=== PATIENT | male | born 1950 | race Two or more races ===

== ENCOUNTER 2024-01-05 00:47 | Inpatient (IN) | payer MEDICARE, OTHER ==
[~2024-01-05] VITALS: Ht 167.6 cm; Wt 62.6 kg
[2024-01-05] MEDS ORDERED: MAG HYDROX/AL HYDROX/SIMETH 30 ML UDC PO PRN (01:30)
[2024-01-05] MEDS ORDERED: MAGNESIUM HYDROXIDE 30 ML UDC PO PRN (01:30)
[2024-01-05 02:23] VITALS: BP 126/76; TEMP 98.2
[2024-01-05] MEDS: BLOOD SUGAR DIAGNOSTIC 1 EACH STRIP IN ONE (04:56)
[2024-01-05] MEDS ORDERED: RISP2TAB85 PO (06:23)
[2024-01-05] MEDS ORDERED: NICO-627 TP (06:23)
[2024-01-05 07:30] LABS: CALCIUM, SERUM 9.8 mg/dL (8.5-10.1); CREATININE 1.3 mg/dL (0.6-1.3); POTASSIUM 3.6 mmol/L (3.5-5.1)
[2024-01-05 07:35] LABS: ALBUMIN 3.2 g/dL (3.4-5.0); BILIRUBIN,TOTAL 0.5 mg/dL (0.2-1.0); TOTAL PROTEIN, SERUM 6.8 g/dL (6.4-8.2)
[2024-01-05 08:00] VITALS: BP 141/79; TEMP 98; O2SAT 96
[2024-01-05] MEDS: MECLIZINE HCL 12.5 MG TABLET PO PRN (12:57)
[2024-01-05 16:00] VITALS: BP 139/71; TEMP 98.7; O2SAT 98
[2024-01-05] MEDS: risperiDONE 1 MG TABLET PO SCH (16:04)
[2024-01-05 20:02] VITALS: BP 132/98; TEMP 98; O2SAT 100
[2024-01-06 06:44] LABS: BASOPHILS % (AUTO) 0.6 % (0.0-2.0); EOSINOPHILS # (AUTO) 0.2 K/uL (0.0-0.7); EOSINOPHILS % (AUTO) 3.2 % (0.0-6.0); HEMATOCRIT 38 % (39-51); HEMOGLOBIN 12.8 g/dL (13.5-17.5); LYMPHOCYTES # (AUTO) 1.9 K/uL (0.8-4.8); LYMPHOCYTES % (AUTO) 25.9 % (20.0-44.0); MEAN CORPUSCULAR HEMOGLOBIN 30 PG (26.0-33.0); MEAN CORPUSCULAR HGB CONC 34 g/dl (31.0-36.0); MEAN CORPUSCULAR VOLUME 87 fL (80-96); MONOCYTES # (AUTO) 0.9 K/uL (0.1-1.30); MONOCYTES % (AUTO) 11.7 % (2.0-12.0); NEUTROPHILS # (AUTO) 4.3 K/uL (1.8-8.9); NEUTROPHILS % (AUTO) 58.6 % (43.0-81.0); PLATELET COUNT (AUTO) 234 K/uL (150-450); RED BLOOD CELL COUNT(AUTO) 4.34 MIL/uL (4.5-6.0); RED CELL DISTRIBUTION WIDTH 15.3 % (11.5-15.0); WHITE BLOOD COUNT (AUTO) 7.3 K/uL (4.3-11.0)
[2024-01-06 07:18] LABS: CALCIUM, SERUM 9.5 mg/dL (8.5-10.1); CREATININE 1.2 mg/dL (0.6-1.3); MAGNESIUM 1.8 mg/dL (1.8-2.4); PHOSPHORUS 4.8 mg/dL (2.5-4.9); POTASSIUM 3.9 mmol/L (3.5-5.1)
[2024-01-06 07:33] LABS: CHOLESTEROL 138 mg/dL (<200); HDL CHOLESTEROL 52 mg/dL (40-60); LDL 68 mg/dL (0-99); TRIGLYCERIDES 92 mg/dL (30-150)
[2024-01-06 08:00] VITALS: BP 139/78; TEMP 97.9; O2SAT 100
[2024-01-06] MEDS: NICOTINE PATCH (21MG) 21 MG PATCH.TD24 TD SCH (08:55)
[2024-01-06 16:00] VITALS: BP 156/82; TEMP 97.9; O2SAT 100
[2024-01-06 20:00] VITALS: BP 143/85; TEMP 98; O2SAT 99
[2024-01-07] MEDS: ACETAMINOPHEN 325 MG TABLET PO PRN (03:50)
[2024-01-07 08:00] VITALS: BP 156/83; TEMP 98; O2SAT 96
[2024-01-07 16:00] VITALS: BP 166/89; TEMP 98.6; O2SAT 98
[2024-01-07 20:00] VITALS: BP 139/68; TEMP 98.1; O2SAT 99
[2024-01-08 08:00] VITALS: BP 171/76; TEMP 97.8; O2SAT 96
[2024-01-08] MEDS: AMLODIPINE BESYLATE 2.5 MG TABLET PO SCH (11:39)
[2024-01-08 16:00] VITALS: BP 167/95; TEMP 98; O2SAT 97
[2024-01-08 20:00] VITALS: BP 159/71; TEMP 97.9; O2SAT 95
[2024-01-09 08:00] VITALS: BP 138/78; TEMP 98.4; O2SAT 100
[2024-01-09 16:00] VITALS: BP 150/84; TEMP 98.5; O2SAT 100
[2024-01-09 21:13] VITALS: BP 150/79; TEMP 98.2; O2SAT 100
[2024-01-10] MEDS: TEMAZEPAM 7.5 MG CAPSULE PO PRN (00:19)
[2024-01-10 08:00] VITALS: BP 151/74; TEMP 98.4; O2SAT 98
[2024-01-10 16:00] VITALS: BP 153/77; TEMP 98.1; O2SAT 99
[2024-01-11 08:00] VITALS: BP 117/76; TEMP 97.8; O2SAT 97
[2024-01-11] MEDS: AMLODIPINE BESYLATE 5 MG TABLET PO SCH (08:51)
[2024-01-11] MEDS: LORAZEPAM 0.5 MG TABLET PO PRN (12:28)
[2024-01-11 16:00] VITALS: BP_SYST 100; BP_SYST 107; BP_DIAS 59; BP_DIAS 87; TEMP 98.2; TEMP 98.6; O2SAT 98; O2SAT 99
[2024-01-11 20:33] VITALS: BP 154/82; TEMP 98.6; O2SAT 98
[2024-01-12 08:00] VITALS: BP 136/80; TEMP 97.8; O2SAT 98
[2024-01-12 16:06] VITALS: BP 140/127; TEMP 98.2; O2SAT 97
[2024-01-12 20:28] VITALS: BP 155/84; TEMP 98.2; O2SAT 98
[2024-01-13 08:00] VITALS: BP 139/78; TEMP 98.6; O2SAT 98
[2024-01-13 12:29] VITALS: BP 118/80
[2024-01-13 16:00] VITALS: BP 175/102; TEMP 97.8; O2SAT 95
[2024-01-13 20:31] VITALS: BP 153/75; TEMP 98; O2SAT 99
[2024-01-14 08:00] VITALS: BP 130/74; TEMP 98.1; O2SAT 96
[2024-01-14 16:00] VITALS: BP 129/79; TEMP 98.6; O2SAT 98
[2024-01-14 20:00] VITALS: BP 118/70; TEMP 98.2; O2SAT 99
[2024-01-15 09:26] VITALS: BP 155/88; TEMP 98; O2SAT 97
[2024-01-15 16:00] VITALS: BP 142/84; TEMP 97.9; O2SAT 100
[2024-01-15 20:00] VITALS: BP 136/76; TEMP 98; O2SAT 97
[2024-01-16 08:00] VITALS: BP 140/81; TEMP 98.6; O2SAT 98
[2024-01-16 16:00] VITALS: BP 123/70; TEMP 98; O2SAT 99
[2024-01-16 20:00] VITALS: BP 144/96; TEMP 98.1; O2SAT 99
[2024-01-17 08:00] VITALS: BP 137/75; TEMP 97.8; O2SAT 100
[2024-01-17 16:12] VITALS: BP 153/71; TEMP 98.2; O2SAT 100
[2024-01-17 21:31] VITALS: BP 154/85; TEMP 98.2; O2SAT 99
[2024-01-18 08:00] VITALS: BP 124/61; TEMP 97.5; O2SAT 98
[2024-01-18 08:59] VITALS: BP 124/61
== END 2024-01-18 14:00 | DRG 885 ==
LOC: GPS 00:47
PROVIDERS: ADMIT Nurse Practitioner Psychiatric/Mental Health
DX: F29 Unspecified psychosis not due to a substance or known physiological condition (principal); I62.03 Nontraumatic chronic subdural hemorrhage; F03.94 Unspecified dementia, unspecified severity, with anxiety; F03.93 Unspecified dementia, unspecified severity, with mood disturbance; Z59.00 Homelessness unspecified; E87.1 Hypo-osmolality and hyponatremia; I10 Essential (primary) hypertension; F41.9 Anxiety disorder, unspecified; E78.00 Pure hypercholesterolemia, unspecified; F17.200 Nicotine dependence, unspecified, uncomplicated; Z79.899 Other long term (current) drug therapy; Z73.6 Limitation of activities due to disability; D64.9 Anemia, unspecified; E11.9 Type 2 diabetes mellitus without complications; Z91.81 History of falling; R79.89 Other specified abnormal findings of blood chemistry
CPT/HCPCS: 36415; 70450-TC; 80048-TC; 80053-TC; 80061-TC; 82962-TC; 83735-TC; 84100-TC; 85025-TC; 87081-TC; 97112-TC; 97116-TC; 97530-TC; J8597

== ENCOUNTER 2024-03-17 18:24 | Inpatient (IN) | payer MEDICARE, OTHER ==
[~2024-03-17] VITALS: Ht 172.7 cm; Wt 66.7 kg
[~2024-03-17 18:24] MED LIST: NICO-627 TP; RISP2TAB85 PO
[2024-03-17 19:49] LABS: BASOPHILS % (AUTO) 0.5 % (0.0-2.0); EOSINOPHILS # (AUTO) 0.2 K/uL (0.0-0.7); HEMATOCRIT 35 % (39-51); HEMOGLOBIN 11.8 g/dL (13.5-17.5); LYMPHOCYTES # (AUTO) 2.1 K/uL (0.8-4.8); LYMPHOCYTES % (AUTO) 29.1 % (20.0-44.0); MEAN CORPUSCULAR HEMOGLOBIN 28 PG (26.0-33.0); MEAN CORPUSCULAR HGB CONC 33 g/dl (31.0-36.0); MEAN CORPUSCULAR VOLUME 85 fL (80-96); MONOCYTES # (AUTO) 0.6 K/uL (0.1-1.30); MONOCYTES % (AUTO) 8.8 % (2.0-12.0); NEUTROPHILS # (AUTO) 4.2 K/uL (1.8-8.9); NEUTROPHILS % (AUTO) 58.6 % (43.0-81.0); PLATELET COUNT (AUTO) 275 K/uL (150-450); RED BLOOD CELL COUNT(AUTO) 4.17 MIL/uL (4.5-6.0); RED CELL DISTRIBUTION WIDTH 14.3 % (11.5-15.0); WHITE BLOOD COUNT (AUTO) 7.2 K/uL (4.3-11.0)
[2024-03-17 20:03] LABS: CALCIUM, SERUM 9.6 mg/dL (8.5-10.1); CARBON DIOXIDE 26 mmol/L (21-32); CHLORIDE 107 mmol/L (98-107); CREATININE 1.2 mg/dL (0.6-1.3); GLUCOSE 93 mg/dL (74-106); POTASSIUM 4.2 mmol/L (3.5-5.1); SODIUM SERUM 140 mmol/L (136-145); UREA NITROGEN, BLOOD 21 mg/dL (7-18)
[2024-03-17 20:13] LABS: ALANINE AMINOTRANSFERASE 12 U/L (12-78); ALBUMIN 3.8 g/dL (3.4-5.0); ALCOHOL, BLOOD < 3 mg/dL (0-10); ALKALINE PHOSPHATASE 52 U/L (46-116); ASPARTATE AMINOTRANSFERASE 12 U/L (15-37); BILIRUBIN,DIRECT 0.1 mg/dL (0.0-0.2); BILIRUBIN,TOTAL 0.3 mg/dL (0.2-1.0); TOTAL PROTEIN, SERUM 6.8 g/dL (6.4-8.2)
[2024-03-17 20:21] LABS: ACETAMINOPHEN 0 ug/ml (10-30); SALICYLATE 1.2 mg/dL (2.8-20.0)
[2024-03-17 20:37] LABS: APPEARANCE,URINE Clear (CLEAR); BILIRUBIN,URINE Negative (NEGATIVE); BLOOD, URINE Trace-intact Ery/uL (NEGATIVE); COLOR,URINE LIGHT YELLOW (YELLOW); KETONES,URINE Negative (NEGATIVE); LEUKOCYTE ESTERASE ,URINE Small (NEGATIVE); NITRITE, URINE Negative (NEGATIVE); PH,URINE 5.5 (5.0-8.0); PROTEIN,URINE Negative (NEGATIVE); UGLUCOSE Negative (NEGATIVE); UROBILINOGEN,URINE 0.2 EU/dL (0.2)
[2024-03-17 20:44] LABS: AMPHETAMINE, URINE NEGATIVE (NEGATIVE); BARBITURATE, URINE NEGATIVE (NEGATIVE); BENZODIAZEPINE, URINE NEGATIVE (NEGATIVE); CANNABINOID, URINE NEGATIVE (NEGATIVE); COCCAINE, URINE NEGATIVE (NEGATIVE); OPIATE, URINE NEGATIVE (NEGATIVE); PHENCYCLIDINE SCREEN,URINE NEGATIVE (NEGATIVE)
[2024-03-17 21:05] LABS: ADD URINE CULTURE YES; BACTERIA,URINE Few /HPF (None Seen); SQUAMOUS EPITHELIAL CELL,UR Few /HPF (None Seen); WBC,URINE 21-50 /HPF (0-3)
[2024-03-17] MEDS: CEFTRIAXONE 1GM BAG (ER ONLY) 1 GM/50 ML PIGGYBACK IV ONE (21:30)
[2024-03-18] MEDS ORDERED: AMLO-212 PO (00:11)
[2024-03-18] MEDS ORDERED: LORA-259 PO (00:12)
[2024-03-18] MEDS ORDERED: CHOL400T11 PO (00:14)
[2024-03-18] MEDS ORDERED: CRAN500T3 PO (00:16)
[2024-03-18] MEDS ORDERED: DIVA500T2 PO (00:18)
[2024-03-18] MEDS ORDERED: BISA10SU61 RC (00:19)
[2024-03-18] MEDS ORDERED: LIDO1ADH71 TD (00:25)
[2024-03-18] MEDS ORDERED: MECL-159 PO (00:26)
[2024-03-18] MEDS ORDERED: RISP0.5T5 PO (00:28)
[2024-03-18] MEDS ORDERED: VOLTAREN GEL 1% TD (00:35)
[2024-03-18 00:57] VITALS: BP 132/74; TEMP 98; O2SAT 98
[2024-03-18] MEDS ORDERED: MAGNESIUM HYDROXIDE 30 ML UDC PO PRN (01:00)
[2024-03-18] MEDS ORDERED: TEMAZEPAM 7.5 MG CAPSULE PO PRN (01:00)
[2024-03-18] MEDS ORDERED: MAG HYDROX/AL HYDROX/SIMETH 30 ML UDC PO PRN (01:00)
[2024-03-18] MEDS: BLOOD SUGAR DIAGNOSTIC 1 EACH STRIP IN ONE (01:04)
[2024-03-18 08:00] VITALS: BP 142/89; TEMP 98.6; O2SAT 97
[2024-03-18] MEDS: AMLODIPINE BESYLATE 5 MG TABLET PO SCH (08:39)
[2024-03-18] MEDS: NICOTINE PATCH (21MG) 21 MG PATCH.TD24 TD SCH (08:39)
[2024-03-18] MEDS: clonazePAM 0.5 MG TABLET PO PRN ×2 (08:48→14:38)
[2024-03-18] MEDS: CHOLECALCIFEROL (VITAMIN D 3) 400 UNIT TABLET PO SCH (09:00)
[2024-03-18] MEDS ORDERED: Medication Not On Formulary EA (Cranberry Extract (Cranberry) 450 MG) PO SCH (09:00)
[2024-03-18] MEDS: risperiDONE 1 MG TABLET PO SCH (10:00)
[2024-03-18] MEDS: DIVALPROEX SODIUM 125 MG CAP.SPRINK PO SCH (10:00)
[2024-03-18] MEDS: CEPHALEXIN MONOHYDRATE 500 MG CAPSULE PO SCH (13:13)
[2024-03-18 16:00] VITALS: BP 137/82; TEMP 97.8; O2SAT 99
[2024-03-18 20:00] VITALS: BP 149/84; TEMP 97.7; O2SAT 97
[2024-03-18 22:00] VITALS: BP 132/80; TEMP 98; O2SAT 98
[2024-03-19 06:54] LABS: BASOPHILS % (AUTO) 0.5 % (0.0-2.0); EOSINOPHILS # (AUTO) 0.2 K/uL (0.0-0.7); EOSINOPHILS % (AUTO) 3.6 % (0.0-6.0); HEMATOCRIT 38 % (39-51); HEMOGLOBIN 12.4 g/dL (13.5-17.5); LYMPHOCYTES # (AUTO) 1.6 K/uL (0.8-4.8); LYMPHOCYTES % (AUTO) 25.1 % (20.0-44.0); MEAN CORPUSCULAR HEMOGLOBIN 28 PG (26.0-33.0); MEAN CORPUSCULAR HGB CONC 33 g/dl (31.0-36.0); MEAN CORPUSCULAR VOLUME 84 fL (80-96); MONOCYTES # (AUTO) 0.7 K/uL (0.1-1.30); MONOCYTES % (AUTO) 11.3 % (2.0-12.0); NEUTROPHILS # (AUTO) 3.8 K/uL (1.8-8.9); NEUTROPHILS % (AUTO) 59.5 % (43.0-81.0); PLATELET COUNT (AUTO) 270 K/uL (150-450); RED BLOOD CELL COUNT(AUTO) 4.51 MIL/uL (4.5-6.0); WHITE BLOOD COUNT (AUTO) 6.3 K/uL (4.3-11.0)
[2024-03-19 06:59] LABS: CALCIUM, SERUM 9.6 mg/dL (8.5-10.1); CARBON DIOXIDE 26 mmol/L (21-32); CHLORIDE 108 mmol/L (98-107); GLUCOSE 86 mg/dL (74-106); POTASSIUM 3.9 mmol/L (3.5-5.1); SODIUM SERUM 142 mmol/L (136-145); UREA NITROGEN, BLOOD 19 mg/dL (7-18)
[2024-03-19 07:18] LABS: CHOLESTEROL 144 mg/dL (<200); HDL CHOLESTEROL 44 mg/dL (40-60); LDL 86 mg/dL (0-99); TRIGLYCERIDES 129 mg/dL (30-150)
[2024-03-19 08:00] VITALS: BP 147/86; TEMP 98; O2SAT 99
[2024-03-19 16:00] VITALS: BP 118/61; TEMP 97.9; O2SAT 97
[2024-03-19 20:16] VITALS: BP 120/65; TEMP 98; O2SAT 97
[2024-03-20 08:00] VITALS: BP 142/84; TEMP 97.8; O2SAT 98
[2024-03-20 16:00] VITALS: BP 127/84; TEMP 98; O2SAT 100
[2024-03-20] MEDS: TEMAZEPAM 7.5 MG CAPSULE PO PRN (20:51)
[2024-03-20 21:03] VITALS: BP 154/84; TEMP 98; O2SAT 99
[2024-03-21 08:00] VITALS: BP 136/80; TEMP 98.6; O2SAT 100
[2024-03-21 16:00] VITALS: BP 140/78; TEMP 97.9; O2SAT 100
[2024-03-21 20:00] VITALS: BP 144/71; TEMP 97.3; O2SAT 99
[2024-03-21 20:15] VITALS: BP 144/71; TEMP 97.3; O2SAT 99
[2024-03-22 08:00] VITALS: BP 132/80; TEMP 97.8; O2SAT 100
[2024-03-22] MEDS: NITROFURANTOIN/MONOHYDRATE MACROCRYSTALS 100 MG CAPSULE PO SCH (10:38)
[2024-03-22 16:00] VITALS: BP 143/77; TEMP 98; O2SAT 95
[2024-03-22 20:55] VITALS: BP 135/70; TEMP 97.8; O2SAT 99
[2024-03-23 08:00] VITALS: BP 145/82; TEMP 97.4; O2SAT 100
[2024-03-23 16:00] VITALS: BP 131/76; TEMP 97.7; O2SAT 95
[2024-03-23 20:00] VITALS: BP 127/78; TEMP 97.3; O2SAT 99
[2024-03-24 08:00] VITALS: BP 138/75; TEMP 97.8; O2SAT 96
[2024-03-24 16:00] VITALS: BP 133/82; TEMP 98; O2SAT 96
[2024-03-24 20:04] VITALS: BP 122/79; TEMP 97.7; O2SAT 98
[2024-03-25 08:00] VITALS: BP 147/81; TEMP 97.9; O2SAT 99
[2024-03-25 16:00] VITALS: BP 158/79; TEMP 97.9; O2SAT 100
[2024-03-25 20:00] VITALS: BP 132/74; TEMP 97.7; O2SAT 97
[2024-03-26 08:00] VITALS: BP 127/83; TEMP 97.7; O2SAT 95
[2024-03-26 16:00] VITALS: BP 119/62; TEMP 98; O2SAT 95
[2024-03-26 20:12] VITALS: BP 126/66; TEMP 98; O2SAT 96
[2024-03-27 08:00] VITALS: BP 145/77; TEMP 98; O2SAT 98
[2024-03-27 16:00] VITALS: BP 127/67; TEMP 98.6; O2SAT 100
[2024-03-27] MEDS: ACETAMINOPHEN 325 MG TABLET PO PRN (20:01)
[2024-03-27 20:36] VITALS: BP 147/77; TEMP 98; O2SAT 98
[2024-03-28 08:00] VITALS: BP 139/73; TEMP 97.6; O2SAT 96
[2024-03-28 16:00] VITALS: BP 128/80; TEMP 97.8; O2SAT 98
[2024-03-28 20:27] VITALS: BP 136/65; TEMP 98; O2SAT 99
[2024-03-29 08:00] VITALS: BP 135/77; TEMP 98.2; O2SAT 100
[2024-03-29 16:00] VITALS: BP 145/88; TEMP 97.5; O2SAT 99
[2024-03-29 20:49] VITALS: BP 131/73; TEMP 98.2; O2SAT 98
[2024-03-30 08:00] VITALS: BP 159/87; TEMP 98.1; O2SAT 98
[2024-03-30 16:00] VITALS: BP 138/58; TEMP 98.1; O2SAT 100
[2024-03-30 20:00] VITALS: BP 120/69; TEMP 98.3; O2SAT 98
[2024-03-31 08:00] VITALS: BP 152/82; TEMP 98.1; O2SAT 99
[2024-03-31 08:59] VITALS: BP 152/82
== END 2024-03-31 13:15 | DRG 885 ==
LOC: ER 18:43 → GPS 21:05
PROVIDERS: ADMIT Psychiatry & Neurology Psychiatry; ATTEND Nurse Practitioner Family
DX: F25.0 Schizoaffective disorder, bipolar type (principal); B95.2 Enterococcus as the cause of diseases classified elsewhere; N39.0 Urinary tract infection, site not specified; Z86.73 Personal history of transient ischemic attack (TIA), and cerebral infarction without residual deficits; Z91.199 Patient's noncompliance with other medical treatment and regimen due to unspecified reason; F17.210 Nicotine dependence, cigarettes, uncomplicated; F15.10 Other stimulant abuse, uncomplicated; F10.10 Alcohol abuse, uncomplicated; Z90.49 Acquired absence of other specified parts of digestive tract; D64.9 Anemia, unspecified; I10 Essential (primary) hypertension; E78.00 Pure hypercholesterolemia, unspecified; F41.1 Generalized anxiety disorder; E11.9 Type 2 diabetes mellitus without complications; R41.9 Unspecified symptoms and signs involving cognitive functions and awareness
CPT/HCPCS: 36415; 80048-TC; 80061-TC; 80076-TC; 81001; 85025-TC; 87081-TC; 87086-TC; 97110-TC; 97116-TC; 97530-TC; 98960; G0480; J0696